=== PATIENT | male | born 1985 | race Caucasian/White ===

== ENCOUNTER 2021-07-14 07:24 | Emergency (ER) | payer OTHER ==
[~2021-07-14] VITALS: Ht 170 cm; Wt 53.0 kg
[2021-07-14] MEDS ORDERED: ORPHENADRINE 60 MG/2 ML (NORFLEX) AMP (ED ONLY) IVP STA (07:31)
[2021-07-14] MEDS ORDERED: fentaNYL INJ 100 MCG/2 ML AMP IVP STA ×2 (07:31→09:14)
--- NOTE | 2021-07-14 07:56 | ED Lower Extremity ---
General Chief Complaint: Lower Extremity Stated Complaint: FALL; RT HIP INJ Nursing Triage Note: Patient has been brought by EMS with cc of right hip and upper right leg pain. Patient reports that he fell on the ice last night. He was helped in to the house and to the cough. He reports that he did take tylenol last night. He did have this severe pain all night. This morning he reports that he fell off of the cough. The pain was so severe that called EMS for transport to ER for evaluation. Source: patient, EMS History of Present Illness Date Seen by Provider: Jul 14, 2021 Time Seen by Provider: 07:24 Initial Comments 35 yo male presenting by EMS from home with complaint of severe pain to right hip since fall on ice last night. He states that he had help to get him into the house because he could not stand or bear weight. He slept on the couch and was basically in seated position. He has increased pain with any attempted movement of his right leg. He has spasms in his right hip and thigh. He denies any his head or losing consciousness. He denies pain in any other areas. He states that he just landed on his right hip and had pain ever since. He denies any allergies to medications. He states that he last ate around 6 PM last night. He had a sip of water around 6 AM this morning. He also fell off of the couch this morning because of the pain in his leg. Onset: yesterday Severity: severe Pain/Injury Location: right hip Method of Injury: fell (slipped on ice) Modifying Factors: Worse With Movement Allergies and Home Medications Allergies Coded Allergies: No Known Drug Allergies (Unverified , 07/14/21) Patient Home Medication List Home Medication List Reviewed: Yes Review of Systems Constitutional: No chills, No dizziness, No fever EENTM: no symptoms reported Respiratory: no symptoms reported Cardiovascular: no symptoms reported Gastrointestinal: no symptoms reported Genitourinary: no symptoms reported Musculoskeletal: see HPI, joint pain (Severe right hip pain) Skin: no symptoms reported Psychiatric/Neurological: Anxiety; Denies Numbness, Denies Paresthesia Past Iecvuiz-Banhek-Kvefws Hx Patient Social History Tobacco Use?: Yes Tobacco type used: Cigarettes Use of E-Cig and/or Vaping dev: No Substance use?: No Alcohol Use?: Yes Alcohol type: Beer Alcohol Frequency: Daily Past Medical History Surgery/Hospitalization HX: Irritable bowel, cholecystectomy, inguinal hernia Surgeries: Yes Gallbladder Respiratory: No Cardiac: No Neurological: No Genitourinary: Yes Kidney Stones Gastrointestinal: Yes Irritable Bowel Musculoskeletal: No Endocrine: No HEENT: No Cancer: No Physical Exam Vital Signs Vital Signs - First Documented 07/14/21 07:40 Temp 36.6 Pulse 108 Resp 18 B/P (MAP) 142/80 (100) Pulse Ox 95 O2 Delivery Room Air Capillary Refill : Height, Weight, BMI Height: '" Weight: lbs. oz. kg; 39.00 BMI Method: General Appearance: mild distress, thin HEENT: PERRL/EOMI, pharynx normal Neck: non-tender, full range of motion, supple, normal inspection Cardiovascular: normal peripheral pulses, regular rate, rhythm Respiratory: chest non-tender, lungs clear, normal breath sounds, no respiratory distress, no accessory muscle use Gastrointestinal: normal bowel sounds, non tender, soft, no pulsatile mass Hips: right hip bone tenderness, right hip limited range of motion, right hip pain, right hip soft tissue tenderness Neurologic/Tendon: normal sensation, normal motor functions, normal tendon functions 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, no motor/sensory deficits, alert, oriented x 3 Skin: normal color, warm/dry Progress/Results/Core Measures Results/Orders Lab Results Laboratory Tests Test 07/14/21 08:25 Range/Units White Blood Count 9.0 4.3-11.0 10^3/uL Red Blood Count 4.37 4.30-5.52 10^6/uL Hemoglobin 14.4 13.3-17.7 g/dL Hematocrit 42 40-54 % Mean Corpuscular Volume 95 80-99 fL Mean Corpuscular Hemoglobin 33 25-34 pg Mean Corpuscular Hemoglobin Concent 35 32-36 g/dL Red Cell Distribution Width 12.7 10.0-14.5 % Platelet Count 192 130-400 10^3/uL Mean Platelet Volume 9.1 9.0-12.2 fL Immature Granulocyte % (Auto) 0 % Neutrophils (%) (Auto) 86 H 42-75 % Lymphocytes (%) (Auto) 7 L 12-44 % Monocytes (%) (Auto) 7 0-12 % Eosinophils (%) (Auto) 0 0-10 % Basophils (%) (Auto) 0 0-10 % Neutrophils # (Auto) 7.7 1.8-7.8 10^3/uL Lymphocytes # (Auto) 0.6 L 1.0-4.0 10^3/uL Monocytes # (Auto) 0.7 0.0-1.0 10^3/uL Eosinophils # (Auto) 0.0 0.0-0.3 10^3/uL Basophils # (Auto) 0.0 0.0-0.1 10^3/uL Immature Granulocyte # (Auto) 0.0 0.0-0.1 10^3/uL Neutrophils % (Manual) 86 % Lymphocytes % (Manual) 8 % Monocytes % (Manual) 6 % Prothrombin Time 13.5 12.2-14.7 SEC INR Comment 1.0 0.8-1.4 Activated Partial Thromboplast Time 25 24-35 SEC Sodium Level 139 135-145 MMOL/L Potassium Level 4.2 3.6-5.0 MMOL/L Chloride Level 106 98-107 MMOL/L Carbon Dioxide Level 22 21-32 MMOL/L Anion Gap 11 5-14 MMOL/L Blood Urea Nitrogen 11 7-18 MG/DL Creatinine 0.75 0.60-1.30 MG/DL Estimat Glomerular Filtration Rate 121 BUN/Creatinine Ratio 15 Glucose Level 125 H 70-105 MG/DL Calcium Level 9.1 8.5-10.1 MG/DL Corrected Calcium 8.8 8.5-10.1 MG/DL Total Bilirubin 1.0 0.1-1.0 MG/DL Aspartate Amino Transf (AST/SGOT) 80 H 5-34 U/L Alanine Aminotransferase (ALT/SGPT) 158 H 0-55 U/L Alkaline Phosphatase 173 H 40-136 U/L Total Protein 7.3 6.4-8.2 GM/DL Albumin 4.4 3.2-4.5 GM/DL My Orders Orders - JESSA DHALIWAL MD Fentanyl Inj (Sublimaze Injection) (07/14/21 07:31) Orphenadrine Inj (Ed Only) (Norflex Inje (07/14/21 07:31) Pelvis With Right Hip 2-3 View (07/14/21 07:33) Comprehensive Metabolic Panel (07/14/21 07:56) Ua Culture If Indicated (07/14/21 07:56) Ed Iv/Invasive Line Start (07/14/21 07:56) Cbc With Automated Diff (07/14/21 07:56) Protime With Inr (07/14/21 07:56) Partial Thromboplastin Time (07/14/21 07:56) Ns Iv 1000 Ml (Sodium Chloride 0.9%) (07/14/21 08:00) Manual Differential (07/14/21 08:25) Fentanyl Inj (Sublimaze Injection) (07/14/21 09:14) Vital Signs/I&O 07/14/21 07/14/21 07:40 09:27 Temp 36.6 36.8 Pulse 108 102 Resp 18 16 B/P (MAP) 142/80 (100) 131/85 Pulse Ox 95 93 O2 Delivery Room Air Room Air Blood Pressure Mean: 100 Progress Progress Note #1: Progress Note He had received 100 mcg of fentanyl and 4 Zofran by EMS. Will give another 100 mcg of fentanyl and 60 mg of Norflex to try and help with spasms and pain and obtain x-rays of his pelvis and right hip. Progress Note #2: Time: 07:57 Progress Note X-rays show comminuted intratrochanteric fracture of the right hip with some displacement and shortening. Call placed to Dr. Purvis the on-call orthopedic doctor at [facility], and he stated he would look at the images and let me know if it was something that would need to go to a trauma center or something he could manage at [place]. Progress Note #3: Time: 08:17 Progress Note d/w Dr. Purvis for Orthopedics and he had reviewed the images and was concerned it might need plating or repair beyond what would be done at [facility] so he recommends a trauma center such as [facility] or . 0820 call to [facility] access center and spoke with Dr. ARROYO from the ED. He requested the images so the Orthopedics doctor could review them and ensure it does not need a subspecialist beyond what they have this weekend. If it is something they can manage they will call back after review of the xrays. Progress Note #4: Progress Note labs stable without acute significant abnormality other than mild elevation of LFTs likely from his hx of drinking Diagnostic Imaging Diagonstic Imaging: Xray Plain Films/CT/US/NM/MRI: pelvis, hip Comments NAME: CORINNE CONTRERAS MED REC#: [id number] PT STATUS: REG ER : 1985 PHYSICIAN: JESSA DHALIWAL MD ADMIT DATE: 07/14/21/ER FS Draft Date of Exam:07/14/21 PELVIS WITH RIGHT HIP 2-3 VIEW INDICATION: Pain after fall COMPARISON: None available. TECHNIQUE: 3 radiographs of the pelvis and right hip dated 07/14/2021. FINDINGS: Acute right intertrochanteric femoral fracture is identified with resulting mild varus angulation. No additional fracture or dislocation. No destructive osseous process. No suspicious radiopaque foreign body. The sacroiliac joints and pubic symphysis appear intact. IMPRESSION: Acute right femoral intertrochanteric fracturing with resultant varus angulation. Dictated on workstation # [id number] Dict: 07/14/21801 Trans: 07/14/21 0805 [id number] [id number] Interpreted by: VLADIMIR SILVA MD Electronically signed by: Reviewed: Reviewed by Me Departure Impression Primary Impression: Displaced intertrochanteric fracture of right femur, initial encounter for closed fracture Additional Impression: Fall due to ice or snow Qualified Codes: W00.9XXA - Unspecified fall due to ice and snow, initial encounter Disposition: XFER SHT-TRM HOSP Condition: Stable Transfer Transfer Reason: Exceeds level of care (Higher level of care for Orthopedics surgery) Time Spoke to Accepting Phy: 08:22 Transfer Progress Notes spoke with Dr. Arroyo at the ED in [facility] and he will have Orthopedics review images and if they can manage it there then will call back to formally accept the patient. 0912 [facility] access center called back and accepted pt for transfer to [facility]. Transfer Facility: [facility] Method of Transfer: EMS Departure-Patient Inst. Referrals: NASIR MOBLEY DO (PCP) Primary Care Physician Work/School Note: Work Release Form Date Seen in the Emergency Department: Jul 14, 2021 Return to Work: Jul 27, 2021 Restrictions: Need Release from Doctor Other Restrictions Listed Below: May return to work when released by Orthopedics JESSA DHALIWAL MD Jul 14, 2021 07:56
[2021-07-14] MEDS ORDERED: NS IV 1000 ML 1,000 ML IV STA (08:00)
--- NOTE | 2021-07-14 08:05 | Diagnostic Imaging Report ---
INDICATION: Pain after fall COMPARISON: None available. TECHNIQUE: 3 radiographs of the pelvis and right hip dated 07/14/2021. FINDINGS: Acute right intertrochanteric femoral fracture is identified with resulting mild varus angulation. No additional fracture or dislocation. No destructive osseous process. No suspicious radiopaque foreign body. The sacroiliac joints and pubic symphysis appear intact. IMPRESSION: Acute right femoral intertrochanteric fracturing with resultant varus angulation. Dictated by: Dictated on workstation # [id number]
[2021-07-14 08:27] LABS: BASOPHILS % (AUTO) 0 % (0-10); EOSINOPHILS % (AUTO) 0 % (0-10); HEMATOCRIT 42 % (40-54); HEMOGLOBIN 14.4 g/dL (13.3-17.7); LYMPHOCYTES # (AUTO) 0.6 10^3/uL (1.0-4.0); LYMPHOCYTES % (AUTO) 7 % (12-44); MEAN CORPUSCULAR HEMOGLOBIN 33 pg (25-34); MEAN CORPUSCULAR HGB CONC 35 g/dL (32-36); MEAN CORPUSCULAR VOLUME 95 fL (80-99); MEAN PLATELET VOLUME 9.1 fL (9.0-12.2); MONOCYTES # (AUTO) 0.7 10^3/uL (0.0-1.0); MONOCYTES % (AUTO) 7 % (0-12); NEUTROPHILS # (AUTO) 7.7 10^3/uL (1.8-7.8); NEUTROPHILS % (AUTO) 86 % (42-75); PLATELET COUNT 192 10^3/uL (130-400)
[2021-07-14 08:44] LABS: PROTHROMBIN TIME PATIENT 13.5 SEC (12.2-14.7)
[2021-07-14 08:50] LABS: CREATININE SERUM 0.75 MG/DL (0.60-1.30); POTASSIUM 4.2 MMOL/L (3.6-5.0)
[2021-07-14 08:51] LABS: ALBUMIN 4.4 GM/DL (3.2-4.5); CALCIUM 9.1 MG/DL (8.5-10.1); TOTAL PROTEIN 7.3 GM/DL (6.4-8.2)
[2021-07-14 08:58] LABS: LYMPHOCYTES % (MANUAL) 8 %; MONOCYTES % (MANUAL) 6 %; NEUTROPHILS % (MANUAL) 86 %
[2021-07-14 09:27] VITALS: BP 131/85
== END 2021-07-14 09:44 | disposition short-term general hospital (02) ==
LOC: EDUNIT# 07:24 → ER FS 07:25
DX: S72.141A Displaced intertrochanteric fracture of right femur, initial encounter for closed fracture (principal); W00.9XXA Unspecified fall due to ice and snow, initial encounter
CPT/HCPCS: 73502; 80053; 85007; 85610; 85730

== ENCOUNTER 2023-02-03 09:15 | Emergency (ER) | payer OTHER ==
[2023-02-03 09:28] VITALS: BP 96/80
[2023-02-03] MEDS ORDERED: NS IV 1000 ML 1,000 ML IV STA (09:33)
[2023-02-03] MEDS ORDERED: PANTOPRAZOLE INJECTION 40 MG VIAL IV STA (09:33)
[2023-02-03] MEDS ORDERED: IOHEXOL 350 MG/ML 100 ML (OMNIPAQUE 350) VIAL IV ONE (09:45)
[2023-02-03] MEDS ORDERED: NS 100 ML (IVPB) BAG IV ONE (09:45)
[2023-02-03] MEDS ORDERED: HOLD METFORMIN - RECEIVED CONTRAST 20 ML VIAL IV SCH (09:45)
[2023-02-03 09:48] LABS: BASOPHILS % (AUTO) 0 % (0-10); EOSINOPHILS % (AUTO) 0 % (0-10); HEMATOCRIT 43 % (40-54); HEMOGLOBIN 14.8 g/dL (13.3-17.7); LYMPHOCYTES % (AUTO) 12 % (12-44); MEAN CORPUSCULAR HEMOGLOBIN 33 pg (25-34); MEAN CORPUSCULAR HGB CONC 35 g/dL (32-36); MEAN CORPUSCULAR VOLUME 95 fL (80-99); MEAN PLATELET VOLUME 8.6 fL (9.0-12.2); MONOCYTES # (AUTO) 0.5 10^3/uL (0.0-1.0); MONOCYTES % (AUTO) 6 % (0-12); NEUTROPHILS # (AUTO) 7.1 10^3/uL (1.8-7.8); NEUTROPHILS % (AUTO) 82 % (42-75); PLATELET COUNT 537 10^3/uL (130-400); WHITE BLOOD COUNT 8.7 10^3/uL (4.3-11.0)
--- NOTE | 2023-02-03 09:57 | ED GI ---
General Chief Complaint: Abdominal/GI Problems Stated Complaint: ABD PAIN| Nursing Triage Note: Patient has presented to ER with cc of chronic abd problems. Patient reports that for the last 3 to 4 weeks he has been having increased chronic diarrhea. He reports 15 to 20 times a day with diarrhea stools. He had a colon oscopy 20 years ago. He reports the chronic problems are getting worse. Source of Information: Patient History of Present Illness Date Seen by Provider: Feb 03, 2023 Time Seen by Provider: 09:17 Initial Comments 37-year-old male presenting with complaints of chronic diarrhea and abdominal issues since he was a teenager. He states that in the last 3 to 4 weeks he has felt like the diarrhea has gotten worse. He is having 15-20 episodes of diarrhea a day. Parents anytime he eats or drinks anything he has diarrhea. He denies having any blood in his diarrhea. He denies any known family history of colitis or Crohn's. He had seen in the clinic 2 or 3 months ago and they started him on a shot to try and help with the diarrhea but he states that it was not helping. Otherwise he only takes a antidepressant. He denies allergies to medicines. He states he does have some abdominal cramping aching that is constantly at least a 2. Right before he has to have diarrhea a has increased pain. He feels like he has lost 20 to 30 pounds in the last few months. He was at work today and was feeling dizzy and lightheaded when he tried to exert himself so he decided to come to the emergency department since he felt like he might pass out. He denies any pain or burning with urination. No fever or chills.He had a colonoscopy when he was a teen but states they never told him a reason for his abdominal pains or chronic diarrhea. Timing/Duration: Getting Worse Severity/Quality: Mild, Cramping, Full Location: Generalized Abdomen Activities at Onset: None Modifying Factors: Worsens With Defecating, Worsens With Eating Associated Symptoms: No Back Pain, No Chest Pain, No Diaphoresis, No Fever/Chills; Fatigue; No Headache, No Heartburn, No Nausea/Vomiting, No Rash, No Shortness of Air, No Swelling/Mass in Abdomen; Syncope (Near syncope), Weakness Allergies and Home Medications Allergies Coded Allergies: No Known Drug Allergies (Unverified , 07/14/21) Patient Home Medication List Home Medication List Reviewed: Yes Prednisone (Prednisone) 20 Mg Tab, 20 MG PO UD Prescribed by: JESSA DHALIWAL on 02/03/23 1218 Review of Systems Review of Systems Constitutional: see HPI; No chills, No fever EENTM: No Symptoms Reported Respiratory: No Symptoms Reported Cardiovascular: No Symptoms Reported Gastrointestinal: See HPI Genitourinary: No Symptoms Reported Musculoskeletal: no symptoms reported Skin: no symptoms reported Psychiatric/Neurological: No Symptoms Reported Past Rznjiol-Zwfftl-Aoomcn Hx Patient Social History Tobacco Use?: No Substance use?: No Alcohol Use?: Yes Alcohol Frequency: Once in a while Past Medical History Surgery/Hospitalization HX: Irritable bowel, cholecystectomy, inguinal hernia Surgeries: Yes Gallbladder Respiratory: No Cardiac: No Neurological: No Genitourinary: Yes Kidney Stones Gastrointestinal: Yes Irritable Bowel Musculoskeletal: No Endocrine: No HEENT: No Cancer: No Physical Exam Vital Signs Vital Signs - First Documented 02/03/23 09:28 Temp 36.7 Pulse 100 Resp 18 B/P (MAP) 96/80 (85) Pulse Ox 100 O2 Delivery Room Air Capillary Refill : Height/Weight/BMI Height: '" Weight: lbs. oz. kg; 39.00 BMI Method: General Appearance: no apparent distress, thin HEENT: pharynx normal Respiratory: chest non-tender, lungs clear, normal breath sounds, no respiratory distress, no accessory muscle use Cardiovascular: normal peripheral pulses, regular rate, rhythm Gastrointestinal: normal bowel sounds, soft, no pulsatile mass; No distended, No guarding, No rebound; tenderness (mild aching pain diffuse abdomen but worse in upper epigastric area) Rectal: deferred Extremities: normal range of motion, non-tender, normal capillary refill Back: no CVA tenderness Neurologic/Psychiatric: alert, oriented x 3 Skin: normal color, warm/dry Progress/Results/Core Measures Results/Orders Lab Results Laboratory Tests Test 02/03/23 09:30 02/03/23 11:00 Range/Units White Blood Count 8.7 4.3-11.0 10^3/uL Red Blood Count 4.51 4.30-5.52 10^6/uL Hemoglobin 14.8 13.3-17.7 g/dL Hematocrit 43 40-54 % Mean Corpuscular Volume 95 80-99 fL Mean Corpuscular Hemoglobin 33 25-34 pg Mean Corpuscular Hemoglobin Concent 35 32-36 g/dL Red Cell Distribution Width 14.0 10.0-14.5 % Platelet Count 537 H 130-400 10^3/uL Mean Platelet Volume 8.6 L 9.0-12.2 fL Immature Granulocyte % (Auto) 0 % Neutrophils (%) (Auto) 82 H 42-75 % Lymphocytes (%) (Auto) 12 12-44 % Monocytes (%) (Auto) 6 0-12 % Eosinophils (%) (Auto) 0 0-10 % Basophils (%) (Auto) 0 0-10 % Neutrophils # (Auto) 7.1 1.8-7.8 10^3/uL Lymphocytes # (Auto) 1.0 1.0-4.0 10^3/uL Monocytes # (Auto) 0.5 0.0-1.0 10^3/uL Eosinophils # (Auto) 0.0 0.0-0.3 10^3/uL Basophils # (Auto) 0.0 0.0-0.1 10^3/uL Immature Granulocyte # (Auto) 0.0 0.0-0.1 10^3/uL Percent Immature Platelet Fraction 1.9 0.0-7.6 % Sodium Level 135 135-145 MMOL/L Potassium Level 3.4 L 3.6-5.0 MMOL/L Chloride Level 102 98-107 MMOL/L Carbon Dioxide Level 17 L 21-32 MMOL/L Anion Gap 16 H 5-14 MMOL/L Blood Urea Nitrogen 19 H 7-18 MG/DL Creatinine 1.33 H 0.60-1.30 MG/DL Estimat Glomerular Filtration Rate 71 BUN/Creatinine Ratio 14 Glucose Level 123 H 70-105 MG/DL Calcium Level 10.2 H 8.5-10.1 MG/DL Corrected Calcium 9.8 8.5-10.1 MG/DL Total Bilirubin 0.8 0.1-1.0 MG/DL Aspartate Amino Transf (AST/SGOT) 50 H 5-34 U/L Alanine Aminotransferase (ALT/SGPT) 42 0-55 U/L Alkaline Phosphatase 114 40-136 U/L Total Protein 9.0 H 6.4-8.2 GM/DL Albumin 4.5 3.2-4.5 GM/DL Lipase 124 H 8-78 U/L Urine Color YELLOW Urine Clarity SLIGHTLY CLOUDY Urine pH 5.5 5-9 Urine Specific [place] <=1.005 1.016-1.022 Urine Protein TRACE H NEGATIVE Urine Glucose (UA) NEGATIVE NEGATIVE Urine Ketones NEGATIVE NEGATIVE Urine Nitrite NEGATIVE NEGATIVE Urine Bilirubin NEGATIVE NEGATIVE Urine Urobilinogen 0.2 < = 1.0 MG/DL Urine Leukocyte Esterase NEGATIVE NEGATIVE Urine RBC (Auto) 3+ H NEGATIVE Urine RBC 10-25 H /HPF Urine WBC 2-5 /HPF Urine Squamous Epithelial Cells NONE /HPF Urine Crystals PRESENT H /LPF Urine Calcium Oxalate Crystals RARE H /LPF Urine Bacteria NEGATIVE /HPF Urine Casts PRESENT /LPF Urine Hyaline Casts 25-50 H /LPF Urine Granular Casts 2-5 H /LPF Urine Mucus SMALL H /LPF Urine Culture Indicated NO My Orders Orders - JESSA DHALIWAL MD Comprehensive Metabolic Panel (02/03/23 09:33) Lipase (02/03/23 09:33) Ua Culture If Indicated (02/03/23 09:33) Ed Iv/Invasive Line Start (02/03/23 09:33) Cbc With Automated Diff (02/03/23 09:33) Ct Abdomen/Pelvis W (02/03/23 09:33) Stool Culture (02/03/23 09:33) Fecal Wbc (02/03/23 09:33) C Difficile Ag + Toxin A/B. (02/03/23 09:33) Ns Iv 1000 Ml (Ns Iv 1000 Ml) (02/03/23 09:33) Pantoprazole Injection (Pantoprazole Inj (02/03/23 09:33) Iohexol Injection (Omnipaque 350 Mg/Ml 1 (02/03/23 09:45) Received Contrast (Hold Metformin- Contr (02/03/23 09:45) Ns (Ivpb) 100 Ml (Sodium Chloride 0.9% 1 (02/03/23 09:45) Medications Given in ED Current Medications Medications Dose Ordered Sig/Marcel Route Start Time Stop Time Status Last Admin Dose Admin Iohexol 100 ml ONCE ONCE IV 02/03/23 09:45 02/03/23 09:46 DC 02/03/23 10:21 75 ML Sodium Chloride 100 ml ONCE ONCE IV 02/03/23 09:45 02/03/23 09:46 DC 02/03/23 10:21 100 ML Vital Signs/I&O 02/03/23 09:28 Temp 36.7 Pulse 100 Resp 18 B/P (MAP) 96/80 (85) Pulse Ox 100 O2 Delivery Room Air Blood Pressure Mean: 85 Progress Progress Note #1: Progress Note Differential diagnosis includes colitis, diverticulitis, ulcerative colitis, malabsorption syndrome, colon cancer, gastritis, gastroenteritis, abdominal mass. Establish peripheral IV access and send labs for complete blood count, comprehensive metabolic profile, lipase, urinalysis, stool studies if he has a bowel movement. Administer normal saline 1 L IV fluid bolus for hydration as he feels like he might be dehydrated. Pantoprazole 40 mg IV for possible gastritis with his complaint of epigastric pain. CT scan of the abdomen and pelvis with IV contrast to look for pathology in the belly that might be contributing to his symptoms. Progress Note #2: Time: 10:21 Progress Note Complete blood count shows normal WBC count at 8.7. Hemoglobin was not showing anemia as it was 14.8. Platelets elevated to 537, which may be reactive in response to inflammatory process or stress. Comprehensive metabolic profile shows potassium is just below normal at 3.4, CO2 just below normal at 17. He has slight elevation of BUN to 19 with Cr of 1.33 and glucose of 123. Lipase about 1.5 times upper limit of normal at 124. Urine and stool studies pending. Patient just coming back from CT scan abdomen/pelvis with IV contrast. Progress Note #3: Progress Note CTscan shows pancolitis without signs of abscess or perforation. Concern for possible infiltrate in lung but patient was not having respiratory symptoms or cough so this may be inflammatory process instead of pneumonia. Treat with steroid for pancolitis and encourage patient to follow up with pcp and see about getting updated colonoscopy as he may need to be on auto-immune medications to treat for colitis. Counseled on follow-up and return precautions. Stressed importance of staying well-hydrated and drinking plenty of fluids and electrolyte drinks. Given a note saying he can return to work tomorrow. Advised if he continued to feel lightheaded or dizzy or feeling worse instead of improving to follow-up with the clinic sooner. Diagnostic Imaging Diagonstic Imaging: CT Plain Films/CT/US/NM/MRI: abdomen, pelvis Comments [facility] [place], [place] NAME: CORINNE CONTRERAS [facility] REC#: [id number] PT STATUS: REG ER : 1985 PHYSICIAN: JESSA DHALIWAL MD ADMIT DATE: 02/03/23/ER FS Draft Date of Exam:02/03/23 CT ABDOMEN/PELVIS W CLINICAL INDICATIONS: Patient with diarrhea x3-4 weeks 12 times a day. EXAM: Axial CT scan of the abdomen and pelvis performed with 75 mL of Omnipaque 350 IV contrast. Sagittal and coronal MIP images were created to better evaluate anatomy. Auto Exposure Controls were utilized during the CT exam to meet ALARA standards for radiation dose reduction. COMPARISON: None FINDINGS: There is a small area of nodular and patchy areas of consolidation involving the medial left lung base concerning for lung infiltrates. There is also nodular areas involving the lingula and medial left lower lobe. There is no pleural effusion. There is an intramedullary karin affixing the healed right proximal femur. The liver, spleen, pancreas, and adrenal glands are unremarkable. The gallbladder surgically absent. There is focal calcification involving the pancreatic head. Staghorn-like calcification seen involving the inferior aspect of the right kidney. There are no stones in the ureter. There is a 8 mm cyst involving the lateral aspect of left kidney. Both kidneys are otherwise unremarkable. There is diffuse bladder wall thickening which is nonspecific. There is diffuse wall thickening seen from the rectum through to the sigmoid colon with increased vascularity seen in the region. There is no intra-abdominal free air or free fluid. The small bowel is unremarkable. The appendix is 6 mm in width and fluid and air-filled, no adjacent inflammation. The extra-abdominal and extrapelvic soft tissue structures are unremarkable. IMPRESSION: 1: There is diffuse wall thickening throughout the colon and increased vascularity consistent with a pancolitis. 2: There is nonspecific diffuse bladder wall thickening. Cystitis should be excluded. 3: There is a nonobstructive staghorn calcification involving the inferior aspect of the right kidney. 4: There are patchy infiltrates involving the medial left lung base and nodular consolidation involving the lingula and medial left lower lobe concerning for pneumonia. Dictated on workstation # [id number] Dict: 02/03/23 1140 Trans: 02/03/23 1154 [facility] [id number] Interpreted by: NAMRATA STARKEY MD Electronically signed by: Reviewed: Reviewed by Me Departure Impression Primary Impression: Chronic diarrhea of unknown origin Additional Impressions: Weight loss, non-intentional Abdominal pain Qualified Codes: R10.9 - Unspecified abdominal pain Pancolitis Disposition: HOME, SELF-CARE Condition: Stable Departure-Patient Inst. Decision time for Depature: 12:12 Referrals: SELFMATILDE MD (PCP) Primary Care Physician Patient Instructions: Diarrhea, Adult ED, Diet for Ulcerative Colitis, Colitis (DC) Add. Discharge Instructions: Try taking the steroids to help with inflammation of your colon. Follow up with clinic as they need to set you up for a colonoscopy and may need to try you on different medicines to help with your diarrhea and colon inflammation. If you are having fever over 101 F, bloody stools then you need to be seen again as you may have to go to a hospital for IV steroids and or antibiotics All discharge instructions reviewed with patient and/or family. Voiced understanding. Scripts Prednisone (Prednisone) 20 Mg Tab 20 MG PO UD for 17 Days, #22 TAB 0 Refills 40 mg by mouth dailyx5 days, 30 mg dailyx4 days, 20 mg dailyx4 days, 10 mg dailyx4 days then stop Prov: JESSA DHALIWAL MD 02/03/23 Work/School Note: Work Release Form Date Seen in the Emergency Department: Feb 03, 2023 Return to Work: Feb 04, 2023 Restrictions: No Restrictions JESSA DHALIWAL MD Feb 03, 2023 09:57
[2023-02-03 10:04] LABS: ALBUMIN 4.5 GM/DL (3.2-4.5); BILIRUBIN,TOTAL 0.8 MG/DL (0.1-1.0); CALCIUM 10.2 MG/DL (8.5-10.1); CREATININE SERUM 1.33 MG/DL (0.60-1.30); POTASSIUM 3.4 MMOL/L (3.6-5.0)
[2023-02-03 11:10] LABS: BILIRUBIN,URINE NEGATIVE (NEGATIVE); COLOR,URINE YELLOW; GLUCOSE, URINE (UA) NEGATIVE (NEGATIVE); KETONES,URINE NEGATIVE (NEGATIVE); LEUKOCYTE ESTERASE ,URINE NEGATIVE (NEGATIVE); NITRITE,URINE NEGATIVE (NEGATIVE); PH,URINE 5.5 (5-9); PROTEIN,URINE TRACE (NEGATIVE)
[2023-02-03 11:23] LABS: CLARITY,URINE SLIGHTLY CLOUDY
[2023-02-03 11:24] LABS: BACTERIA,URINE NEGATIVE /HPF; CALCIUM OXALATE CRYSTALS,UR RARE /LPF; HYALINE CASTS, URINE 25-50 /LPF
--- NOTE | 2023-02-03 11:54 | Diagnostic Imaging Report ---
CLINICAL INDICATIONS: Patient with diarrhea x3-4 weeks 12 times a day. EXAM: Axial CT scan of the abdomen and pelvis performed with 75 mL of Omnipaque 350 IV contrast. Sagittal and coronal MIP images were created to better evaluate anatomy. Auto Exposure Controls were utilized during the CT exam to meet ALARA standards for radiation dose reduction. COMPARISON: None FINDINGS: There is a small area of nodular and patchy areas of consolidation involving the medial left lung base concerning for lung infiltrates. There is also nodular areas involving the lingula and medial left lower lobe. There is no pleural effusion. There is an intramedullary karin affixing the healed right proximal femur. The liver, spleen, pancreas, and adrenal glands are unremarkable. The gallbladder surgically absent. There is focal calcification involving the pancreatic head. Staghorn-like calcification seen involving the inferior aspect of the right kidney. There are no stones in the ureter. There is a 8 mm cyst involving the lateral aspect of left kidney. Both kidneys are otherwise unremarkable. There is diffuse bladder wall thickening which is nonspecific. There is diffuse wall thickening seen from the rectum through to the sigmoid colon with increased vascularity seen in the region. There is no intra-abdominal free air or free fluid. The small bowel is unremarkable. The appendix is 6 mm in width and fluid and air-filled, no adjacent inflammation. The extra-abdominal and extrapelvic soft tissue structures are unremarkable. IMPRESSION: 1: There is diffuse wall thickening throughout the colon and increased vascularity consistent with a pancolitis. 2: There is nonspecific diffuse bladder wall thickening. Cystitis should be excluded. 3: There is a nonobstructive staghorn calcification involving the inferior aspect of the right kidney. 4: There are patchy infiltrates involving the medial left lung base and nodular consolidation involving the lingula and medial left lower lobe concerning for pneumonia. Dictated by: Dictated on workstation # [id number]
[2023-02-03] MEDS ORDERED: PRD20T PO (12:18)
== END 2023-02-03 12:24 | disposition home or self-care (01) ==
LOC: EDUNIT# 09:15 → ER FS 09:17
DX: K51.00 Ulcerative (chronic) pancolitis without complications (principal); Z90.49 Acquired absence of other specified parts of digestive tract
CPT/HCPCS: 36415; 74177; 80053; 81000; 83690; 85025; 87015; 87045; 87046; 87324; 87449; 87899; Q9967